=== PATIENT | female | born 1935 | race Caucasian/White ===

== ENCOUNTER 2016-12-08 16:05 | Emergency (ER) | payer MEDICARE, OTHER ==
[~2016-12-08] VITALS: Ht 160 cm; Wt 71.3 kg
[~2016-12-08 16:05] MED LIST: 1-ME1LIQ PO; BENA20TA PO
[2016-12-08 16:09] VITALS: BP 203/112; PULSE 96; RESP 18; TEMP 97.6; O2SAT 98
[2016-12-08] MEDS ORDERED: BENA20TA PO (16:18)
[2016-12-08] MEDS ORDERED: cholesterol med (16:18)
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
--- NOTE | 2016-12-08 17:18 | RADRPT ---
EXAM DATE/TIME: 12/08/2016 16:58 [facility] COMPARISON: SPINE LUMBAR [facility]TD (AP & LAT), May 04, 2013, 14:49. INDICATIONS : Right shoulder pain for 1 month. No fall or injury. MEDICAL HISTORY : None. SURGICAL HISTORY : None. ENCOUNTER: Initial ACUITY: 1 month PAIN SCORE: 6/10 LOCATION: Right anterior shoulder. FINDINGS: There are degenerative changes in the a.c. joint. The humeral head is well situated within the glenoi d fossa. No acute fracture is seen. The limited portion of the lung apex visualized is clear. CONCLUSION: 1. Arthritic changes in the acromioclavicular joint. Eduard Best MD on December 08, 2016 at 17:15 Board Certified Radiologist. This report was verified electronically.
[2016-12-08] MEDS ORDERED: TRAM50TA PO (17:22)
== END 2016-12-08 17:38 | disposition home or self-care (01) ==
LOC: PHEFT 16:05
DX: M19.011 Primary osteoarthritis, right shoulder (principal); I10 Essential (primary) hypertension; Z87.39 Personal history of other diseases of the musculoskeletal system and connective tissue; Z86.69 Personal history of other diseases of the nervous system and sense organs
CPT/HCPCS: 73030; 99283